=== PATIENT | male | born 1995 | race Caucasian/White ===

== ENCOUNTER 2016-07-22 16:00 | Emergency (ER) | payer OTHER ==
[~2016-07-22] VITALS: Ht 172.7 cm; Wt 67.7 kg
[2016-07-22 16:14] VITALS: BP 125/85; PULSE 110; RESP 17; TEMP 99.1; O2SAT 97
--- NOTE | 2016-07-22 16:27 | PD ---
HPI Chief Complaint: Cold / Flu Symptoms Time Seen by Provider: 16:24 Travel History International Travel<30 days: No Contact w/Intl Traveler<30days: No Traveled to known affect area: No History of Present Illness HPI 21-year-old male presents to emergency Department with 3 day history of upper respiratory infection symptoms including sore throat, headache, postnasal drip, fever, chills, and cough. Patient denies wheezing, nausea, vomiting, or diarrhea. Patient feels worse today, specifically worse sore throat and sinus congestion. Patient is allergic to penicillin. He smokes half pack cigarettes a day. PFSH Past Medical History Asthma: Yes Diminished Hearing: No GERD: Yes Headaches: Yes (MIGRAINES, CLUSTER HALL) Immunizations Current: Yes Migraines: Yes Tetanus Vaccination: Unknown Influenza Vaccination: No Past Surgical History Surgical History: No Previous Surgery Social History Alcohol Use: No Tobacco Use: Yes (03/31 ppd ) Substance Use: No Allergies-Medications (Allergen,Severity, Reaction): Coded Allergies: Penicillin (Verified Allergy, Unknown, PT DOES NOT KNOW WHAT HAPPENS, 07/22) Reported Meds & Prescriptions Reported Meds & Active Scripts Active Flonase Allergy Relief Children Nasal [place] (Fluticasone Nasal [place]) 50 Mcg/ Act [place] 2 [place] EACH NARE DAILY 50 mcg/spray Amoxicillin 875 Mg Tab 875 Mg PO BID Review of Systems Except as stated in HPI: all other systems reviewed are Neg General / Constitutional: Positive: Fever, Chills Eyes: No: Visual changes HENT: Positive: Headaches, Sore Throat, Rhinitis, Rhinorrhea, Congestion, No: Vertigo, Lightheadedness, Nosebleed, Neck Stiffness, Neck Pain, Ear Discharge, Earache Cardiovascular: No: Chest Pain or Discomfort Respiratory: Positive: Cough, No: Shortness of Breath, Wheezing, Sneezing, Orthopnea, Hemoptysis, Pleuritic Pain Gastrointestinal: No: Nausea, Vomiting, Diarrhea, Abdominal Pain Genitourinary: No: Dysuria Musculoskeletal: No: Pain Skin: No Rash Neurologic: No: Weakness Psychiatric: No: Depression Endocrine: No: Polydipsia Hematologic/Lymphatic: No: Easy Bruising Physical Exam Narrative GENERAL: Patient appears ill but not septic. SKIN: Warm and dry. Mild pallor. Normal turgor. HEAD: Atraumatic. Normocephalic. EYES: Pupils equal and round. No scleral icterus. No injection or drainage. ENT: No nasal bleeding or discharge. Mucous membranes pink and moist. TMs are clear bilaterally. Sinus tenderness with palpation to both frontal and maxillary sinuses is noted. Posterior pharynx shows postnasal drip and cobblestoning of the posterior pharynx without significant lymphadenopathy or erythema. Uvula is midline. NECK: Trachea midline. Neck is supple nontender without significant lymphadenopathy. CARDIOVASCULAR: Regular rate and rhythm. RESPIRATORY: No accessory muscle use. Clear to auscultation. Breath sounds equal bilaterally. GASTROINTESTINAL: Abdomen soft, non-tender, nondistended. Hepatic and splenic margins not palpable. MUSCULOSKELETAL: Extremities without clubbing, cyanosis, or edema. No obvious deformities. NEUROLOGICAL: Awake and alert. No obvious cranial nerve deficits. Motor grossly within normal limits. Five out of 5 muscle strength in the arms and legs. Normal speech. PSYCHIATRIC: Appropriate mood and affect; insight and judgment normal. Data Data Last Documented VS Vital Signs Date Time Temp Pulse Resp B/P Pulse Ox O2 Delivery O2 Flow Rate FiO2 07/22/16 16:21 97 07/22/16 16:14 99.1 110 17 125/85 Orders Influenzae A/B Antigen (07/22/16 16:23) MDM Medical Decision Making Medical Screen Exam Complete: Yes Emergency Medical Condition: Yes Differential Diagnosis Upper respiratory infection. Influenza. Sinusitis. Pharyngitis. Narrative Course Patient is medically stable at time of exam. Rapid influenza A is sent to the lab. Rapid influenza is negative. Patient is felt to have sinusitis. Patient was treated with Bactrim DS twice a day 10 days. Patient is also given Flonase nasal spray 2 sprays each nostril daily. Patient take Tylenol and ibuprofen as needed for fever and aches and pains. Work note is given for the next 2 days. Patient is to rest and push fluids and follow up if symptoms do not improve or worsen. Diagnosis Primary Impression: Acute pansinusitis, unspecified Referrals: Primary Care Physician Patient Instructions: General Instructions, How to Stop Smoking (ED), Sinusitis (ED) Departure Forms: Work Release Enter return to work date: Jul 24, 2016 Additional Instructions: Rapid influenza is negative. Patient is felt to have sinusitis. Patient was treated with Bactrim DS twice a day 10 days. Patient is also given Flonase nasal spray 2 sprays each nostril daily. Patient take Tylenol and ibuprofen as needed for fever and aches and pains. Work note is given for the next 2 days. Patient is to rest and push fluids and follow up if symptoms do not improve or worsen. Med/Other Pt SpecificInfo: Prescription(s) given Scripts Sulfamethoxazole-Trimethoprim (Bactrim DS)800-160 Mg Tab1 Tab PO BID #20 TAB Prov:Gucci Ayoub MD 07/22/16 Fluticasone Nasal [place] (Flonase Allergy Relief Children Nasal [place])50 Mcg/Act Spray2 [place] EACH NARE DAILY #1 BOTTLE 50 mcg/spray Prov:Gucci Ayoub MD 07/22/16 Disposition: 01 DISCHARGE HOME Condition: Stable Viet Banda Jul 22, 2016 16:27
[2016-07-22] MEDS ORDERED: FLUT1SPR9 EACH NARE ×2 (17:01→17:12)
[2016-07-22] MEDS ORDERED: AMOX875T PO (17:01)
[2016-07-22] MEDS ORDERED: BACT800T5 PO (17:05)
== END 2016-07-22 17:13 | disposition home or self-care (01) ==
LOC: PHEFT 16:00
DX: J01.40 Acute pansinusitis, unspecified (principal)
CPT/HCPCS: 87804; 99284